=== PATIENT | male | born 1950 | race Caucasian/White ===

== ENCOUNTER 2018-08-02 07:01 | Emergency (ER) | payer MEDICARE, OTHER ==
[~2018-08-02] VITALS: Ht 180.3 cm; Wt 120.2 kg
[2018-08-02 07:30] VITALS: BP 153/84
[2018-08-02] MEDS ORDERED: cefTRIAXone SOD 1,000 MG VL IM ONE (08:00)
== END 2018-08-02 08:29 | disposition home or self-care (01) ==
LOC: ER 07:01
DX: L03.012 Cellulitis of left finger (principal); E11.9 Type 2 diabetes mellitus without complications; I10 Essential (primary) hypertension
CPT/HCPCS: 10060; 82962; 96372; 99283; J0696